=== PATIENT | female | born 2000 | race Caucasian/White ===

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

== ENCOUNTER → 2025-01-01 | Outpatient (CLI) | payer OTHER | LOC: M CLY 13:55 | PROVIDERS: ATTEND Registered Nurse | DX: M54.50 Low back pain, unspecified (principal); M54.6 Pain in thoracic spine ==